=== PATIENT | female | born 1945 | race Caucasian/White ===

== ENCOUNTER → 2017-06-21 | Outpatient (CLI) | payer MEDICARE, BC ==
[~2017-06-21] MED LIST: ASCORBIC ACID500 MG PO; ASPIRIN EC81 MG PO; CATAPRES0.1 MG PO; CITRACAL950 MG PO; KEFLEX250 MG PO; LIPITOR40 MG PO; MULTIVITAMINS1 EAC1 PO; PRINIVIL (ZESTRI5 MG PO; VITAMIN D1000 UNIT PO; ZINCATE (50 MG220 MG PO
== END ==
LOC: GBCOE 10:06
DX: M81.0 Age-related osteoporosis without current pathological fracture (principal); Z78.0 Asymptomatic menopausal state